=== PATIENT | male | born 1995 | race Hispanic/Latino ===

== ENCOUNTER 2019-10-31 20:25 | Emergency (ER) | payer BC ==
[2019-10-31] MEDS ORDERED: Bacitracin 1 PK ONE (20:45)
[2019-10-31] MEDS ORDERED: Adacel (T-DAP) 0.5 ML SYRINGE ONE (20:49)
== END 2019-10-31 20:55 | disposition home or self-care (01) ==
LOC: ERS 20:25
DX: S91.332A Puncture wound without foreign body, left foot, initial encounter (principal); Z23 Encounter for immunization; W45.0XXA Nail entering through skin, initial encounter
CPT/HCPCS: 90715; 99283